=== PATIENT | female | born 1970 | race African-American/Black ===

== ENCOUNTER 2016-04-30 20:37 | Emergency (ER) | payer MEDICAID | END 2016-04-30 21:24 | disposition left against medical advice (07) | LOC: CED 20:37 | DX: R11.10 Vomiting, unspecified (principal); R19.7 Diarrhea, unspecified; Z53.9 Procedure and treatment not carried out, unspecified reason ==

== ENCOUNTER → 2016-07-15 | Outpatient (CLI) | payer MEDICAID | LOC: FIMAGING 18:46 | PROVIDERS: ATTEND Physician Assistant Medical | DX: G35 Multiple sclerosis (principal); M30.0 Polyarteritis nodosa ==

== ENCOUNTER → 2016-07-25 | Outpatient (CLI) | payer MEDICAID ==
[~2016-07-25] MED LIST: LIDOCAINE 1% 30 ML SDV ONE; NA BICARBONATE 50 MEQ/50 ML VIAL ONE
[2016-07-25 11:08] LABS: PROTEIN, CSF 29 mg/dL (12-60)
[2016-07-25 11:14] LABS: CSF APPEARANCE CLEAR (CLEAR); CSF COLOR COLORLESS (COLORLESS); CSF SUPERNATANT COLORLESS (COLORLESS); WBC, CSF 0 /mm3 (0-5)
== END ==
LOC: FIMAGING 08:37
PROVIDERS: ATTEND Psychiatry & Neurology Neurology
PROC: 009U3ZX Drainage of Spinal Canal, Percutaneous Approach, Diagnostic (ICD-10-PCS; principal; 2016-07-25)
DX: R93.0 Abnormal findings on diagnostic imaging of skull and head, not elsewhere classified (principal); M30.0 Polyarteritis nodosa

== ENCOUNTER 2016-12-07 11:51 | Emergency (ER) | payer MEDICAID ==
[2016-12-07 12:02] VITALS: PULSE 93; O2SAT 96
[2016-12-07] MEDS ORDERED: predniSONE 20 MG TAB PO ONE (12:13)
--- NOTE | 2016-12-07 12:21 | EDPHY ---
H & P Time Seen by Provider: 12/07/16 12:03 HPI/ROS: This patient used black diet her hair 2 days ago and subsequently developed burning discomfort is skin of her scalp where she applied the dye as well as burning discomfort to both eyes and face after showering and rinsing the dye. She has continued mild facial edema associated with her symptoms and describes associated itching and burning to face and scalp. She used a different hair dye a previous time last year without allergic reaction. ROS: Constitutional: No fevers or other complaints HEENT: No vision changes. No difficulty breathing or speaking. Pulmonary: No wheeze or shortness of breath Cardiovascular: No heart palpitations or lightheadedness GI: No nausea or vomiting 5 point ROS is otherwise negative. Past Medical/Surgical History: Polyarteritis nodosa Smoking Status: Former smoker Physical Exam: Physical Exam Vital signs are normal. General: Pleasant black female, No acute distress HEENT: Patient has mild facial edema and periorbital edema without significant warmth to touch. Oropharynx is clear without angioedema, dysphonia, drooling or stridor. Eyes: Pupils equal and react to light. Extraocular motions are intact. She has mild conjunctival injection and bilateral eyelid swelling. No significant discharge. Lungs: No respiratory distress. Cardiac: Brisk capillary refill is intact throughout. Skin: No rash or pallor. I appreciate no change in the color of her skin. Mild edema as noted above. No warmth to touch. No vesicles urticaria. Neuro: Alert and oriented x3 with no sensorimotor deficits. Initial differential diagnosis: Contact dermatitis, other allergic response, doubt psoriasis Constitutional: Initial Vital Signs Temperature (C) 36.4 C 12/07/16 11:59 Heart Rate 93 12/07/16 11:59 Respiratory Rate 16 12/07/16 11:59 Blood Pressure 164/112 H 12/07/16 11:59 O2 Sat (%) 96 12/07/16 11:59 O2 Delivery Mode Room Air Allergies/Adverse Reactions: diclofenac potassium [From Cataflam] Allergy (Severe, Verified 12/07/16 12:07) oxycodone [Oxycodone] Allergy (Mild, Verified 12/07/16 12:07) Vomiting Home Medications: Medication Instructions Recorded Atorvastatin Calcium 12/07/16 Folic Acid 12/07/16 Ketotifen Fumarate [Zaditor] 1 ml OP BID #1 btl 12/07/16 Labetalol HCl 12/07/16 Methotrexate 12/07/16 predniSONE 40 mg PO DAILY #10 tab 12/07/16 MDM/Departure - MDM Medications Given: Discontinued Medications Prednisone (Prednisone) 40 mg PO EDNOW ONE Stop: 12/07/16 12:14 Last Admin: 12/07/16 12:20 Dose: 40 mg ED Course/Re-evaluation: Discussion: Findings most consistent with atopic dermatitis as an allergy to the hair dye. I counseled regarding this. We discussed options and she is comfortable with plan to use prednisone for 5 days with 1st dose given here and antihistamines as needed. Advised her to avoid this dye in the future. She does not have evidence of anaphylaxis. I do not think she has psoriasis. She understands need to return if she develops any significant worsening of symptoms despite the treatment plan. - Depart Disposition: Home, Routine, Self-Care Clinical Impression: Atopic dermatitis Qualifiers: Atopic dermatitis type: unspecified Qualified Code(s): L20.9 - Atopic dermatitis, unspecified Allergic conjunctivitis Qualifiers: Laterality: bilateral Qualified Code(s): H10.13 - Acute atopic conjunctivitis, bilateral Condition: Good Instructions: Contact Dermatitis (ED) Additional Instructions: Diagnosis: Allergic dermatitis 2. Allergic conjunctivitis Plan: Prednisone as prescribed Loratadine nonsedating antihistamine during the day and Benadryl at night if needed for itching. Avoid the dye that you used in the future as you have an allergy to the dye. Return for any significant worsening despite treatment plan. Prescriptions: Ketotifen Fumarate [Zaditor] 1 ml OP BID #1 btl predniSONE 40 mg PO DAILY #10 tab Referrals: SHAE OLSON,. [Primary Care Provider] - As per Instructions
[2016-12-07 12:37] VITALS: BP 148/112; RESP 18; TEMP 98.1
== END 2016-12-07 12:30 | disposition home or self-care (01) ==
LOC: CED 11:51
DX: L20.9 Atopic dermatitis, unspecified (principal); H10.13 Acute atopic conjunctivitis, bilateral; Z87.891 Personal history of nicotine dependence

== ENCOUNTER 2017-08-17 14:11 | Emergency (ER) | payer MEDICAID ==
[2017-08-17] MEDS ORDERED: methylPREDNISolone SOD SUCC 125 MG/2 ML VIAL IVP ONE (14:43)
[2017-08-17] MEDS ORDERED: FAMOTIDINE 20 MG TAB PO ONE ×2 (14:44→14:54)
[2017-08-17] MEDS ORDERED: NS 1,000 ML IV ONE (14:45)
[2017-08-17] MEDS ORDERED: diphenhydrAMINE 25 MG CAP PO ONE (14:54)
[2017-08-17] MEDS ORDERED: predniSONE 20 MG TAB PO ONE (14:54)
--- NOTE | 2017-08-17 15:17 | EDPHY ---
H & P Time Seen by Provider: 08/17/17 14:31 HPI/ROS: 47-year-old female presents complaining of scalp itching, facial swelling that began after using hair dye on FridayAugust 15. It initially began as just an itchy scalp and then later progressed to swelling of her forehead swelling around her eyes with itchiness. No fevers no chills no other new exposures no lip swelling no difficulty breathing no difficulty swallowing Review of systems as per hpi-facial swelling General no fever no chills no weakness HEENT no eye pain no eye discharge. No eye redness, no sore throat Respiratory no cough, no shortness of breath Cardiac no chest pain, no peripheral edema GI no abdominal pain, no diarrhea, no constipation, no nausea, no vomiting no flank pain, no hematuria, no dysuria Musculoskeletal no myalgias, no joint pain Heme no easy bruising, no easy bleeding Endo no polyuria, no polydipsia Skin no rashes, pos pruritus Neuro no syncope, no dizziness, no headaches Psych is no suicidal ideation, no homicidal ideation Past Medical/Surgical History: ms htn Social History: Denies alcohol or drug use Smoking Status: Former smoker Physical Exam: 47-year-old female alert and oriented no acute distress nontoxic appearance Facial swelling from forehead to mid face, periorbital, no lip swelling No stridor no wheezing, no uvular edema HEENT atraumatic normocephalic, extraocular muscles intact, anicteric Oropharynx negative for erythema negative exudate, tolerating her own secretions Neck supple no meningismus Lungs clear to auscultation bilaterally Heart regular rate and rhythm without murmur rub or gallop Abdomen nondistended normoactive bowel sounds soft nontender Back no CVA tenderness, no step-offs, no spinal tenderness Extremities no cyanosis clubbing or edema Neuro alert and oriented, no focal deficits Constitutional: Initial Vital Signs Temperature (C) 36.6 C 08/17/17 14:22 Heart Rate 96 08/17/17 14:22 Respiratory Rate 20 08/17/17 14:22 Blood Pressure 175/123 H 08/17/17 14:22 O2 Sat (%) 93 08/17/17 14:22 O2 Delivery Mode Room Air Allergies/Adverse Reactions: diclofenac potassium [From Cataflam] Allergy (Severe, Verified 12/07/16 12:07) oxycodone [Oxycodone] Allergy (Mild, Verified 12/07/16 12:07) Vomiting Home Medications: Medication Instructions Recorded Atorvastatin Calcium 12/07/16 Folic Acid 12/07/16 Ketotifen Fumarate [Zaditor] 1 ml OP BID #1 btl 12/07/16 Labetalol HCl 12/07/16 Methotrexate 12/07/16 predniSONE 40 mg PO DAILY #10 tab 12/07/16 predniSONE 40 mg PO DAILY 3 Days #6 tablet 08/17/17 Medical Decision Making ED Course/Re-evaluation: Patient seen and evaluated for facial swelling following use of a hair dye. Patient given prednisone 60 mg p.o., diphenhydramine 50 mg p.o., famotidine 20 mg p.o. In the emergency department, offered to give her medications IV but she has a difficult access and after 2 attempts refused any further attempts at IV access Impression Allergic reaction to hair dye Plan Home on prednisone 40 mg p.o. Q.day x4 days Home on famotidine 20 mg p.o. Twice daily Recommend diphenhydramine 25-50 mg every 6 hr as needed for swelling or itching Discussed with patient using a nonsedating antihistamine during the day and diphenhydramine at bedtime. Differential Diagnosis: Differential diagnosis considered but not limited to: Allergic reaction to hair dye, cellulitis, angioedema, anaphylaxis - Data Points Medications Given: Discontinued Medications Diphenhydramine HCl (Benadryl) 50 mg PO EDNOW ONE Stop: 08/17/17 14:55 Last Admin: 08/17/17 15:03 Dose: 50 mg Famotidine (Pepcid) 20 mg PO EDNOW ONE Stop: 08/17/17 14:55 Last Admin: 08/17/17 15:03 Dose: 20 mg Prednisone (Prednisone) 60 mg PO EDNOW ONE Stop: 08/17/17 14:55 Last Admin: 08/17/17 15:03 Dose: 60 mg Departure - Departure Disposition: Home, Routine, Self-Care Clinical Impression: Allergic reaction to dye Condition: Good Instructions: General Allergic Reaction (ED) Additional Instructions: You are allergic to the hair dye you are using. Each time you use it again , the reaction could be progressively worse. You were given prednisone, famotidine, and diphenhydramine in the ED At home you can take Ines during the day and Diphenhydramine at bedtime for itching or swelling Prednisone once a day for the next 3 days. Famotidine ( Pepcid) twice a day for 5 days. Avoid hot showers or hot soaks May apply cool compresses to eyes /face Referrals: SHAE OLSON [Other] - As per Instructions Prescriptions: predniSONE 40 mg PO DAILY 3 Days #6 tablet
[2017-08-20 07:36] VITALS: BP 168/108
== END 2017-08-17 15:27 | disposition home or self-care (01) ==
LOC: CED 14:11
DX: T78.49XA Other allergy, initial encounter (principal); I10 Essential (primary) hypertension; Z87.891 Personal history of nicotine dependence
CPT/HCPCS: J7512